=== PATIENT | male | born 1990 | race Two or more races ===

== ENCOUNTER 2017-07-20 09:50 | Emergency (ER) | payer OTHER ==
[~2017-07-20] VITALS: Ht 172.7 cm; Wt 63.5 kg
[2017-07-20 09:56] VITALS: BP 133/94
--- NOTE | 2017-07-20 10:03 | NUR ---
seen by ER physician at bedside
[2017-07-20] MEDS ORDERED: LIDOCAINE MPF 1%-EPI 1:200,000 30 ML VIAL IJ ONE (10:21)
[2017-07-20] MEDS ORDERED: IBUPROFEN 600 MG TABLET PO ONE ×2 (10:21→10:30)
[2017-07-20] MEDS ORDERED: LIDOCAINE 1%-EPI 1:100,000 50 ML VIAL IJ ONE (10:30)
[2017-07-20] MEDS ORDERED: BUPIVACAINE 0.5 % PF 150 MG/30 ML VIAL ONE (10:57)
== END 2017-07-20 11:51 | disposition home or self-care (01) ==
LOC: ER 09:53
DX: L02.31 Cutaneous abscess of buttock (principal)
CPT/HCPCS: 10060; 99283; A4606; A6407; J3490 ×2; Z7610

== ENCOUNTER 2017-08-07 16:51 | Emergency (ER) | payer OTHER ==
[~2017-08-07] VITALS: Ht 172.7 cm; Wt 68.0 kg
[2017-08-07 17:08] VITALS: BP 138/80
[2017-08-07] MEDS ORDERED: BUPIVACAINE 0.25% 75 MG/30 ML VIAL ONE (17:41)
[2017-08-07] MEDS ORDERED: IBUPROFEN 600 MG TABLET PO ONE ×2 (18:00→18:45)
== END 2017-08-07 19:13 | disposition home or self-care (01) ==
LOC: ER 16:53
DX: L02.31 Cutaneous abscess of buttock (principal)
CPT/HCPCS: 10060; 99283; A4606; A6403; A6407; J3490; Z7610

== ENCOUNTER 2017-09-13 12:03 | Emergency (ER) | payer OTHER ==
[~2017-09-13] VITALS: Ht 172.7 cm; Wt 68.0 kg
[2017-09-13 13:08] VITALS: BP 146/103
== END 2017-09-13 13:41 | disposition home or self-care (01) ==
LOC: ER 12:04
DX: K61.1 Rectal abscess (principal); Z60.2 Problems related to living alone
CPT/HCPCS: A4606; Z7610

== ENCOUNTER 2019-06-22 10:33 | Emergency (ER) | payer OTHER ==
[~2019-06-22] VITALS: Ht 167.6 cm; Wt 68.0 kg
[2019-06-22 10:38] VITALS: BP 163/124
--- NOTE | 2019-06-22 10:40 | NUR ---
AT BEDSIDE FOR EVAL.
[2019-06-22] MEDS ORDERED: LIDOCAINE 1%-EPI 1:100,000 20 ML VIAL TP ONE (11:00)
[2019-06-22] MEDS ORDERED: CEPHALEXIN MONOHYDRATE 500 MG CAPSULE PO ONE ×2 (11:00→11:03)
[2019-06-22] MEDS ORDERED: BACI/NEOM/POLY B OINT PKT 1 UDPKT PACKET TP ONE (11:00)
[2019-06-22] MEDS ORDERED: SULFAMETH/TRIMETH 800/160 MG 1 UDTAB TABLET PO ONE (11:00)
[2019-06-22] MEDS ORDERED: HYDROCODONE/APAP 5/325MG 1 EACH TABLET PO ONE (11:00)
[2019-06-22] MEDS ORDERED: HYDROCODONE/APAP 5/325MG 1 EACH TABLET ONE (11:03)
[2019-06-22] MEDS ORDERED: LIDOCAINE 1%-EPI 1:100,000 20 ML VIAL ONE (11:03)
[2019-06-22] MEDS ORDERED: SULFAMETH/TRIMETH 800/160 MG 1 UDTAB TABLET ONE (11:04)
[2019-06-22] MEDS ORDERED: BACI/NEOM/POLY B OINT PKT 1 UDPKT PACKET ONE (11:05)
[2019-06-22] MEDS ORDERED: LET SOLN TOPICAL 8 ML UDC TP ONE ×3 (11:08→11:30)
[2019-06-22] MEDS ORDERED: BUPIVACAINE 0.25% 75 MG/30 ML VIAL ONE (13:28)
[2019-06-22] MEDS ORDERED: BUPIVACAINE 0.25% 75 MG/30 ML VIAL IJ ONE (13:30)
--- NOTE | 2019-06-22 13:50 | NUR ---
I&D DONE BY DR. CORONEL.
--- NOTE | 2019-06-22 14:19 | NUR ---
Patient discharged to home in stable condition. Written and verbal after care instructions given. Patient verbalizes understanding of instruction.
== END 2019-06-22 14:20 | disposition home or self-care (01) ==
LOC: ER 10:33
DX: L02.31 Cutaneous abscess of buttock (principal); L03.317 Cellulitis of buttock; Z60.2 Problems related to living alone
CPT/HCPCS: 10060; 99284; A6403 ×2; A6407; J3490 ×2

== ENCOUNTER 2019-07-26 12:50 | Emergency (ER) | payer OTHER ==
[~2019-07-26] VITALS: Ht 170.2 cm; Wt 68.0 kg
[2019-07-26 13:33] VITALS: BP 132/78
[2019-07-26] MEDS ORDERED: KETOROLAC TROMETHAMINE INJ 30 MG/ML VIAL ONE (14:28)
[2019-07-26] MEDS ORDERED: KETOROLAC TROMETHAMINE INJ 30 MG/ML VIAL IM ONE (14:30)
--- NOTE | 2019-07-26 14:32 | NUR ---
TORADOL IM GIVENA ORDERED
== END 2019-07-26 15:05 | disposition home or self-care (01) ==
LOC: ER 12:52
DX: M54.5 Low back pain (principal); M54.2 Cervicalgia; Z60.2 Problems related to living alone; V49.49XA Driver injured in collision with other motor vehicles in traffic accident, initial encounter; Y93.89 Activity, other specified; Y92.413 State road as the place of occurrence of the external cause; Y99.8 Other external cause status
CPT/HCPCS: 96372; 99283; J1885

== ENCOUNTER 2020-07-07 12:36 | Emergency (ER) | payer OTHER ==
[~2020-07-07] VITALS: Ht 172.7 cm; Wt 60.8 kg
[2020-07-07] MEDS ORDERED: LIDOCAINE 1% INJ 50 ML MDV IJ ONE (13:00)
[2020-07-07] MEDS ORDERED: LIDOCAINE /MPF 1% VIAL 5 ML VIAL ONE (13:06)
--- NOTE | 2020-07-07 13:10 | NUR ---
PILONIDAL CYST X 2 DAYS. PATIENT A/OX4, BREATHING EVEN AND UNLABORED, NO SOB NOTED. NEEDS ATTENDED. KEPT COMFORTABLE.
--- NOTE | 2020-07-07 13:54 | NUR ---
DR BANKS AT BEDSIDE FOR I&D
--- NOTE | 2020-07-07 15:00 | NUR ---
wound dressing done.
[2020-07-07 15:05] VITALS: BP 129/81
--- NOTE | 2020-07-07 15:05 | NUR ---
Patient discharged to home in stable condition. Written and verbal after care instructions given. Patient verbalizes understanding of instruction.
== END 2020-07-07 15:06 | disposition home or self-care (01) ==
LOC: ER 12:46
DX: K61.0 Anal abscess (principal); Z60.2 Problems related to living alone
CPT/HCPCS: 46050; 76882; 99284; A6403; A6407; J3490